=== PATIENT | female | born 1965 | race Caucasian/White ===

== ENCOUNTER 2018-03-16 19:50 | Emergency (ER) | payer BC, OTHER ==
[~2018-03-16] VITALS: Ht 165.1 cm; Wt 72.6 kg
[2018-03-16 20:54] VITALS: BP 162/94
== END 2018-03-16 22:00 | disposition home or self-care (01) ==
LOC: ER 19:55
DX: S83.402A Sprain of unspecified collateral ligament of left knee, initial encounter (principal); I50.9 Heart failure, unspecified; X58.XXXA Exposure to other specified factors, initial encounter; Y93.89 Activity, other specified; Y99.8 Other external cause status; Y92.89 Other specified places as the place of occurrence of the external cause
CPT/HCPCS: 93971